=== PATIENT | female | born 1965 | race Caucasian/White ===

== ENCOUNTER → 2016-11-09 | Outpatient (CLI) | payer BC ==
[2016-11-09 09:49] LABS: BASOPHILS % (AUTO) 1 % (0-2); EOSINOPHILS # (AUTO) 0.1 10^3uL; EOSINOPHILS % (AUTO) 1 % (0-4); LYMPHOCYTES # (AUTO) 2.2 X10^3; MEAN CORPUSCULAR HEMOGLOBIN 29.9 PG (26.0-34.0); MEAN CORPUSCULAR HGB CONC 34.8 g/dL (31.0-37.0); MEAN CORPUSCULAR VOLUME 86 FL (80-100); MEAN PLATELET VOLUME 10.1 FL (6.0-9.5); MONOCYTES # (AUTO) 0.7 X10^3; MONOCYTES % (AUTO) 9 % (3-11); NEUTROPHILS # (AUTO) 4.8 X10^3; NEUTROPHILS % (AUTO) 61 % (51-67); PLATELET COUNT 268 10^3uL (150-450); WHITE BLOOD COUNT 7.91 10^3uL (4.0-11.0)
[2016-11-09 10:50] LABS: ALBUMIN 3.9 g/dL (3.4-5.0); ALKALINE PHOSPHATASE 72 U/L (38-126); ANION GAP 15.5 MEQ/L (3-15); BUN/CREATININE RATIO 33 (10-20); CALCULATED IONIZED CALCIUM 4.1 mg/dL (3.8-4.6); MAGNESIUM* 1.5 mg/dL (1.6-2.3); TOTAL PROTEIN 6.7 g/dL (6.4-8.5)
== END ==
LOC: LAB 09:26
PROVIDERS: ATTEND Family Medicine
DX: Z00.00 Encounter for general adult medical examination without abnormal findings (principal); D50.8 Other iron deficiency anemias
CPT/HCPCS: 36415; 80053; 80061; 82043; 82728; 83036; 83735; 84436; 84443; 85025

== ENCOUNTER → 2016-11-15 | Outpatient (CLI) | payer BC ==
--- NOTE | 2016-11-16 10:41 | Diagnostic Imaging Report ---
INDICATION: Screening mammogram COMPARISON: 06/17/2015, 04/10/2013 FAMILY HISTORY: Reportedly positive in an aunt. Bilateral digital mammography is performed with computer assisted detection (CAD) software utilization. There are no reported clinical signs and/or symptoms of breast cancer. The breast tissue pattern is composed mostly of radiographically fat tissue. No dominant mass, suspicious microcalcification, or other significant abnormality is identified. IMPRESSION: 1. Negative for malignancy. Follow-up mammography in one year is recommended. ACR BI-RADS Category 1: Negative Result letter will be mailed to the patient. Note: At least 10% of breast cancer is not imaged by mammography. Dictated by: Dictated on workstation # [id number]
== END ==
LOC: RAD 13:43
PROVIDERS: ATTEND Family Medicine
DX: Z00.00 Encounter for general adult medical examination without abnormal findings (principal); Z12.31 Encounter for screening mammogram for malignant neoplasm of breast
CPT/HCPCS: 93005; G0202